=== PATIENT | female | born 1990 | race Caucasian/White ===

== ENCOUNTER 2017-04-15 12:05 | Observation (INO) ==
[2017-04-15 10:01] LABS: Bilirubin,Urine Negative (Negative); Blood,Urine Negative (Negative); Clarity,Urine Clear (Clear); Color,Urine Yellow (Yellow); Glucose,Urine (UA) Normal (Normal); Ketones,Urine Negative (Negative); Leukocyte Esterase,Urine Negative (Negative); Nitrite,Urine Negative (Negative); PH,Urine 6.5 pH Units (5.0-8.0); Protein,Urine Negative (Neg-Trace); Specific Gravity,Urine 1.007 (1.010-1.025); Urobilinogen,Urine Normal (Normal)
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
[~2017-04-15 12:05] MED LIST: Acetaminophen 325 MG TABLET PO ONE
== END 2017-04-15 14:05 | disposition home or self-care (01) ==
LOC: 1NENULAB
PROVIDERS: ADMIT Obstetrics & Gynecology; ATTEND Obstetrics & Gynecology

== ENCOUNTER 2017-07-12 14:12 | Observation (INO) ==
[2017-07-12 14:48] VITALS: BP 118/66
[2017-07-12] MEDS ORDERED: Ringers Solution, Lactated 1,000 ML IVC ONE (15:06)
[2017-07-12 15:14] LABS: Bilirubin,Urine Small (Negative); Blood,Urine Negative (Negative); Clarity,Urine Cloudy (Clear); Color,Urine Dark Yellow (Yellow); Glucose,Urine (UA) Normal (Normal); Ketones,Urine >=160 mg/dL (Negative); Leukocyte Esterase,Urine Small (Negative); Nitrite,Urine Negative (Negative); PH,Urine 6.5 pH Units (5.0-8.0); Protein,Urine 30 mg/dL (Neg-Trace); Urobilinogen,Urine Normal (Normal)
[2017-07-12 15:15] LABS: Basophils % 0.1 %; Eosinophils # 0.1 K/mcL (0.0-0.6); Hematocrit 38.6 % (35.3-44.9); Hemoglobin 13.2 g/dL (11.5-15.4); Immature Granulocytes % 0.5 % (0-4); Lymphocytes # 1.2 K/mcL (0.6-4.6); Mean Corpuscular HGB Conc 34.2 g/dL (31.6-35.5); Mean Corpuscular Hemoglobin 29.3 pg (28.0-33.3); Mean Corpuscular Volume 85.6 fL (83.0-100.0); Monocytes % 7.3 %; Neutrophils # 10.9 K/mcL (1.6-8.9); Platelet Count 269 K/mcL (140-400); Red Blood Count 4.51 M/mcL (3.82-4.97); Red Cell Distribution Width 14.1 % (11.5-14.5); Segmented Neutrophils % 82.1 %
[2017-07-12] MEDS ORDERED: Ringers Solution, Lactated 1,000 ML IVC SCH (15:15)
[2017-07-12 15:17] LABS: Bacteria,Urine Many per hpf (None-Few); RBC,Urine 0-3 per hpf (0-3); Squamous Epithelial Cell,Urine Many per lpf (None-Few); WBC,Urine 15-30 per hpf (0-3)
[2017-07-12] MEDS ORDERED: *HR* Promethazine 25 MG/ML VIAL IVP ONE (15:42)
--- NOTE | 2017-07-12 15:48 | OB/GYN Progress Note ---
Date of Encounter: 07/12/17 Time of Encounter: 15:43 - Assessment and Plan (1) 38 weeks gestation of Current Visit: Yes Status: Acute Admit for observation (2) Nausea and vomiting during Current Visit: Yes Status: Acute IVF and antiemetic (3) Dehydration Current Visit: Yes Status: Acute IV fluids. Advance diet as tolerated Subjective - Subjective Principal diagnosis: N/V diarrhea Interval history: Pt is a 27 yo at 38.2 weeks with complaint of N/V and diarrhea since last night. States she vomited once early this morning and again after arrival here. Reports 6-7 episodes of diarrhea since last night. Positive movement, denies contractions, LOF, vaginal bleeding. Antepartum ROS: movement normal, no loss of fluid, no vaginal bleeding, no contractions Objective - Vital Signs Vital Signs: Vital Signs Resp BP 07/12/17 14:36 14 118/66 Intake and Output 07/11/17 07/12/17 07/12/17 23:59 07:59 15:59 Other: Weight 101.7 kg Patient Weight 07/12/17 23:59 Weight 101.7 kg - Exam FHR: auscultation normal, category 1 FHR comments: 135 bpm with accels Auscultation: bilateral: wheezes (+ smoker) Abdomen: Present: normal appearance, soft, gravid. Absent: tenderness Uterus: Present: normal Comments: Uterine irritability noted. - Labs Labs: Abnormal lab results WBC 13.3 K/mcL (4.3-11.1) H 07/12/17 14:36 Neutrophils # 10.9 K/mcL (1.6-8.9) H 07/12/17 14:36 Urine Clarity Cloudy (Clear) A 07/12/17 14:36 Ur Specific [place] 1.030 (1.010-1.025) H 07/12/17 14:36 Urine Protein 30 mg/dL (Neg-Trace) H 07/12/17 14:36 Urine Ketones >=160 mg/dL (Negative) H 07/12/17 14:36 Urine Bilirubin Small (Negative) H 07/12/17 14:36 Ur Leukocyte Esterase Small (Negative) H 07/12/17 14:36 Urine Microscopic WBC 15-30 per hpf (0-3) H 07/12/17 14:36 Ur Squamous Epith Cells Many per lpf (None-Few) H 07/12/17 14:36 Urine Bacteria Many per hpf (None-Few) H 07/12/17 14:36 Ur Culture Indicated? YES (NO) A 07/12/17 14:36
[2017-07-12 16:03] LABS: Potassium 3.7 mEq/L (3.5-4.5)
--- NOTE | 2017-07-12 17:34 | Discharge Summary ---
Date of Encounter: 07/12/17 Time of Encounter: 17:34 - Discharge Diagnosis (1) 38 weeks gestation of Priority: Primary Status: Acute (2) Nausea and vomiting during Priority: Secondary Status: Acute Comments: Will discharge home with RX for promethazine 12.5mg (3) Dehydration Priority: Secondary Status: Acute - Discharge Medications Prescriptions: Promethazine [Phenergan] 12.5 mg PO Q6HR #10 tablet Home Medications: Vit/Iron Fumarate/FA [ Tablet] 1 each PO DAILY #30 tablet 11/22 [Rx] Promethazine [Phenergan] 12.5 mg PO Q6HR #10 tablet 07/12/17 [Rx] raNITIdine HCl 1 / PO BID 07/12/17 [History] Allergies/Adverse Reactions: 3 Allergy/AdvReac Type Severity Reaction Status Date / Time No Known Allergies Allergy Verified 11/22/16 17:29 Data Procedures and tests throughout hospitalization: Laboratory Tests 07/12/17 07/12/17 07/12/17 14:36 14:36 14:36 WBC 13.3 H RBC 4.51 Hgb 13.2 Hct 38.6 MCV 85.6 MCH 29.3 MCHC 34.2 RDW 14.1 Plt Count 269 MPV 11.0 Immature Gran % 0.5 Seg Neutrophils % 82.1 Lymphocytes % 9.0 Monocytes % 7.3 Eosinophils % 1.0 Basophils % 0.1 Neutrophils # 10.9 H Lymphocytes # 1.2 Monocytes # 1.0 Eosinophils # 0.1 Basophils # 0.0 Sodium 135 L Potassium 3.7 Chloride 106 Carbon Dioxide 20 Urine Color Dark Yellow Urine Clarity Cloudy A Urine pH 6.5 Ur Specific [place] 1.030 H Urine Protein 30 H Urine Glucose (UA) Normal Urine Ketones >=160 H Urine Blood Negative Urine Nitrite Negative Urine Bilirubin Small H Urine Urobilinogen Normal Ur Leukocyte Esterase Small H Urine Microscopic RBC 0-3 Urine Microscopic WBC 15-30 H Ur Squamous Epith Cells Many H Urine Bacteria Many H Hyaline Casts Test Not Performed Urine Yeast Test Not Performed Ur Culture Indicated? YES A Labs on day of discharge: Labs from last 24 hours 07/12/17 07/12/17 07/12/17 14:36 14:36 14:36 WBC 13.3 H RBC 4.51 Hgb 13.2 Hct 38.6 MCV 85.6 MCH 29.3 MCHC 34.2 RDW 14.1 Plt Count 269 MPV 11.0 Immature Gran % 0.5 Seg Neutrophils % 82.1 Lymphocytes % 9.0 Monocytes % 7.3 Eosinophils % 1.0 Basophils % 0.1 Neutrophils # 10.9 H Lymphocytes # 1.2 Monocytes # 1.0 Eosinophils # 0.1 Basophils # 0.0 Sodium 135 L Potassium 3.7 Chloride 106 Carbon Dioxide 20 Urine Color Dark Yellow Urine Clarity Cloudy A Urine pH 6.5 Ur Specific [place] 1.030 H Urine Protein 30 H Urine Glucose (UA) Normal Urine Ketones >=160 H Urine Blood Negative Urine Nitrite Negative Urine Bilirubin Small H Urine Urobilinogen Normal Ur Leukocyte Esterase Small H Urine Microscopic RBC 0-3 Urine Microscopic WBC 15-30 H Ur Squamous Epith Cells Many H Urine Bacteria Many H Hyaline Casts Test Not Performed Urine Yeast Test Not Performed Ur Culture Indicated? YES A Date of admission: 07/12/17 14:12 Primary care physician: PCP NONE Discharging clinician: Cande Joseph Anticipated date of discharge: 07/12/17 - Patient Status Disposition: Home, Self-Care Condition: Good Functional capacity at discharge: independent ambulation - Discharge Instructions Follow Up With: NONE,PCP [Primary Care Provider] - - Diet and Activity Activity: increase activity as tolerated Diet: regular diet Hospital Course DESKTOP PUBLISHING SPECIALIST Time Attestation: Total time spent providing and/or coordinating discharge services: Time Spent: Less than 30 minutes Exam - Constitutional Vitals: Resp BP 14 118/66 07/12/17 14:36 07/12/17 14:36 General appearance IM: A&O X 3, pleasant, answers questions appropriately - Other Additional findings: FHR 135 bpm moderate variability +15x15 accels no decels noted. No contractions. - VTE Reasons for not Prescribing Prophylaxis: Treatment not Indicated - Low risk for VTE
== END 2017-07-12 18:05 | disposition home or self-care (01) ==
LOC: 1NENULAB
PROVIDERS: ADMIT Obstetrics & Gynecology; ATTEND Obstetrics & Gynecology

== ENCOUNTER 2017-07-17 08:00 | Inpatient (IN) ==
[2017-07-17] MEDS ORDERED: Naloxone 0.4 MG/ML INJ IVP PRN (08:59)
[2017-07-17] MEDS ORDERED: Ondansetron 4 MG/2 ML VIAL IVP PRN (08:59)
[2017-07-17] MEDS ORDERED: Famotidine 20 MG/2 ML VIAL IVP PRN (08:59)
[2017-07-17] MEDS ORDERED: Ringers Solution, Lactated 1,000 ML IVC SCH (09:00)
--- NOTE | 2017-07-17 09:05 | OB/GYN History & Physical ---
Date of Encounter: 07/17/17 Time of Encounter: 09:00 Assessment and Plan (1) and not yet delivered in third trimester Current visit: Yes Status: Acute (2) 39 weeks gestation of Current visit: Yes Status: Acute (3) Elective induction of labor planned Current visit: Yes Status: Acute History of Present Illness HPI: Ms. Garrido is a 27 year old female 3 para 2 at 39-0/7 weeks by a 9-1/7 week ultrasound who presented for an induction of labor secondary to term with favorable cervix. Patient had previously been scheduled for primary section because of transverse lie the patient recently flipped to vertex confirmed by ultrasound and we changed her delivery to vaginal. The patient's initial course has been complicated with severe depression has met with counseling was placed on medication but she has not taken anything at this time. Did advise watch very closely in the period and initiate treatment at that time if need be. Patient is having occasional contractions not really feeling them good movement no vaginal bleeding. Patient is Rh + rubella positive GBS negative Past Med Surg Social Fam HX - Past Medical History Source: patient, old records reviewed Medical history: no medical history, GERD, other Psychiatric history: anxiety, depression - Past Surgical History Surgical History: cholecystectomy, other (Tonsils and adenoids) - Social History Smoking Status: Current every day smoker Smokeless Tobacco Status: No Alcohol use: none Drug use: none Occupational status: unemployed Current living situation: Home - Independent Activity Level: Independent ambulation Recent Out of Country Travel Within the Last 8 Weeks: No Exposure or Possible Exposure to Illness During Travel: No - Family History Mother Living Status: Still Living Hx Family Cardiac Disorders: No Hx Family Respiratory Disorders: No Hx Family Cancer: Yes (cervical; kidney; brain) Hx Family GI Disorders: No Hx Family Endocrine Disorder: No Hx Family Neuromuscular Disorders: No Hx Family Neurologic Disorders: No Hx Family HEENT Disorders: No Hx Family Autoimmune Disorders: No - Additional Family History Additional family history: Family history is noncontributory Obstetrical History - Pregnancies : 3 Para: 2 Term: 2 Livin Medications and Allergies Vit/Iron Fumarate/FA [ Tablet] 1 each PO DAILY #30 tablet 11/22 [Rx] Promethazine [Phenergan] 12.5 mg PO Q6HR #10 tablet 07/12/17 [Rx] raNITIdine HCl 1 / PO BID 07/12/17 [History] 3 Allergy/AdvReac Type Severity Reaction Status Date / Time No Known Allergies Allergy Verified 11/22/16 17:29 Review of System OB All systems PM: reviewed and no additional remarkable complaints except as stated Exam - Constitutional Constitutional: well developed, well nourished, no acute distress, obese - HEENT HEENT: EOMI, PERRL - Neck Neck exam: full ROM - Lungs Respiratory exam: CTAB - Cardiovascular Cardiovascular exam: RRR - Abdomen Abdomen: Present: bowel sounds normal, gravid - Cervix Dilation: 2 Effacement: 80 Station: -2 (mcdonough catheter placed, during placement we had artificial rupture membranes clear fluid noted we will use by mouth Cytotec to get the contractions got) Results All other labs normal. - VTE Reasons for not Prescribing Prophylaxis: Treatment not Indicated - Low risk for VTE
[2017-07-17 09:11] LABS: Basophils % 0.2 %; Eosinophils # 0.3 K/mcL (0.0-0.6); Eosinophils % 2.1 %; Hematocrit 34.9 % (35.3-44.9); Hemoglobin 11.7 g/dL (11.5-15.4); Immature Granulocytes % 0.8 % (0-4); Lymphocytes # 2.2 K/mcL (0.6-4.6); Lymphocytes % 16.8 %; Mean Corpuscular HGB Conc 33.5 g/dL (31.6-35.5); Mean Corpuscular Hemoglobin 29.2 pg (28.0-33.3); Monocytes # 1.1 K/mcL (0.0-1.3); Monocytes % 8.2 %; Neutrophils # 9.3 K/mcL (1.6-8.9); Platelet Count 237 K/mcL (140-400); Red Blood Count 4.01 M/mcL (3.82-4.97); Red Cell Distribution Width 14.2 % (11.5-14.5); Segmented Neutrophils % 71.9 %
[2017-07-17] MEDS ORDERED: miSOPROStol 25 MCG TABLET VG PRN (09:12)
[2017-07-17] MEDS ORDERED: miSOPROStol 100 MCG TABLET PO ONE (09:39)
[2017-07-17] MEDS ORDERED: *HR* Nalbuphine 20 MG/ML AMPUL ONE (11:05)
[2017-07-17] MEDS ORDERED: *HR* Nalbuphine 20 MG/ML AMPUL IVP PRN (11:06)
[2017-07-17] MEDS ORDERED: Epidural Premix (fent/bupiv) 110 ML EP SCH (13:45)
[2017-07-17] MEDS ORDERED: Epidural Premix (fent/bupiv) 110 ML EP ONE (13:48)
[2017-07-17] MEDS ORDERED: *HR* FentaNYL (PF) 100 MCG/2 ML VIAL ONE (14:44)
--- NOTE | 2017-07-17 15:03 | Anesthesia Evaluation PreOp ---
Date of Encounter: 07/17/17 Time of Encounter: 15:00 - Past History Planned Operation: YADIRA Cardiac History: Denies any Significant Hx Pulmonary History: Denies Any Significant HX CIVIL ENGINEERING DRAFTSPERSON History: Denies Any Significant HX Other Medical History: Denies Any Significant HX Anesthesia History: No Prior Anesthetic Complications : Yes Test: Positive Alcohol Use: none Drug use: none Medications and Allergies Vit/Iron Fumarate/FA [ Tablet] 1 each PO DAILY #30 tablet 11/22 [Rx] Promethazine [Phenergan] 12.5 mg PO Q6HR #10 tablet 07/12/17 [Rx] raNITIdine HCl 1 / PO BID 07/12/17 [History] 3 Allergy/AdvReac Type Severity Reaction Status Date / Time No Known Allergies Allergy Verified 11/22/16 17:29 - Meds/Allergy Pre-op Review Medications Reviewed: Yes Allergies Reviewed: No Beta Blockers on Current Med List: No Anesthesia Results - Labs 07/17/17 09:00 Anesthesia Exam Height: 67 Pain Scale: 10 - HEENT Pupil (Motor): Pupils equal Mallampati: II Teeth: Normal Oral Opening: Greater than 3 - CIVIL ENGINEERING DRAFTSPERSON LOC: Oriented CIVIL ENGINEERING DRAFTSPERSON Motor: Normal RUE, Normal LUE, Normal RLE, Normal LLE, Normal Face CIVIL ENGINEERING DRAFTSPERSON Sensory: Normal: RUE, LUE, RLE, LLE, Face - Cardiac Rhythm: Regular Murmur: None JVD: No Carotid Bruit: No - Pulmonary Breath Sounds: bilateral Clear Respiratory Effort: Symmetrical Anesthesia Assess/Plan ASA Score: 2 Modified [place] Scale for Level of Consciousness: Cooperative, oriented, and tranquil Anesthetic Plan: Regional Autologous Blood: No Monitoring Plan: Standard Monitors
--- NOTE | 2017-07-17 15:06 | Anesthesia Procedures ---
Date of Encounter: 07/17/17 Time of Encounter: 15:00 Procedures: Anesthesia - Epidural/Spinal Patient ID/Chart reviewed: Yes Patient examined: Yes OB Eval: Gestational age: 30 OB Eval: : 3 OB Eval: Hx Para: 2 OB Eval: Dilated at (cm): 6 OB Eval: Contractions: Non-stressed pattern Consent Obtained: Yes Supplemental Oxygen: None/Room Air Site Prep: Aseptic Technique, Sterile prep and drape, Povidone-Iodine 1% Patient position: upright Local Anesthetic: Lidocaine 1% Amount of Local Anesthetic used: 3 Touhy Needle Gauge: 18 Touhy Needle Depth (cm): 5 Catheter Depth at Skin (cm): 7 Test Dose (1.5% Lido + Epi): Volume given (mls): 3 Test Dose Result: Negative Loading Dose: 0.25% Marcaine (mls): 10 Infusion Rate (mls/hr): [address]: Tegaderm, Tape Interspace Used: L4-L5 Loss of Resistance (RACHEL): Yes Blood: No CSF: No Paresthesia: No Vitals + FHT's: no complications with epidural placement, pt denies relief, states pain level is at 10. consulted dr flowers, catheter pulled. L5 S1 intrathecal with fentanyl 10mcg and 0.5ml PFsaline with success, positive CSF, denies relief.
[2017-07-17] MEDS ORDERED: Oxytocin 20 units/ LR 1000 mL 20 UNIT/1,000 ML BAG IVC ONE (15:38)
[2017-07-17] MEDS ORDERED: Lidocaine 1% 20 ML MDV ONE (15:45)
--- NOTE | 2017-07-17 16:19 | OB/GYN Procedure Note ---
Delivery - Delivery Date: 07/17/17 Provider: Josias Atkins Intrapartum events: none Delivery induction: AROM, mcdonough, misoprostol Delivery augmentation: pitocin Delivery monitor: external FHT, external uterine Anesthesia: local Estimated Blood Loss: 200 - (s) A Infant Delivery Date: 07/17/17 Delivery Time: 15:36 Presentation: vertex Position: AGGIE Route of delivery: Gender: Female Viability: Viable Pounds: 7 Ounces: 14 Weight Gram: 3.585 kg at 1 minute: 8 at 5 mins: 9 Shoulder Dystocia: not encountered Specimens collected: cord blood Placenta: spontaneous Cord: 3 umbilical vessels - Repair Episiotomy: none Laceration Description: Periurethral (Right) - Complications Delivery complications: none Delivery comments: Patient is a 27-year-old 3 para 2 at 39-0/7 weeks who presented to labor and delivery for induction of labor. Patient was scheduled for Mcdonough catheter with side effects during insertion of the Mcdonough she had spontaneous rupture membranes. We switched her to by mouth Cytotec 50 g 1 then augmented with Pitocin. Patient was getting uncomfortable had requested an epidural anesthesia attempted but due to her history of scoliosis they were unable to get the epidural to take. Patient progressed rapidly became complete she had a small anterior lip which was reducible she pushed twice delivering a viable female infant in left occiput anterior presentation at 1536. There was no nuchal cord, no meconium, infant was bulb suctioned on the abdomen. Apgars were 8 at 1 minutes, 9 at 5 minutes, weight was 7 lbs. 14 oz. Placenta was then delivered spontaneously with a three-vessel cord, bull ladle tender at [place], anesthesia local, estimated blood loss 200 mL. She had a small right periurethral laceration repaired with 3-0 Vicryl in usual fashion cervix and vagina was visualized intact. She will be observed 2 hours before being taken to the floor - Disposition Mom disposition: stable in LDR [place] disposition: stable in LDR
[2017-07-17] MEDS ORDERED: Oxytocin 20 units/ LR 1000 mL 20 UNIT/1,000 ML BAG IVC SCH (18:11)
[2017-07-17] MEDS ORDERED: Acetaminophen 325 MG TABLET PO PRN (18:11)
[2017-07-17] MEDS ORDERED: Measles/Mumps/Rubella Vacc 0.5 ML VIAL SQ PRN (18:11)
[2017-07-17] MEDS: Ibuprofen 600 MG TABLET PO PRN (19:12)
[2017-07-18] MEDS: Ibuprofen 600 MG TABLET PO PRN ×2 (03:48→13:21)
[2017-07-18 06:08] LABS: Basophils % 0.2 %; Eosinophils # 0.3 K/mcL (0.0-0.6); Eosinophils % 2.1 %; Hematocrit 28.9 % (35.3-44.9); Immature Granulocytes % 0.7 % (0-4); Lymphocytes # 2.7 K/mcL (0.6-4.6); Lymphocytes % 21.5 %; Mean Corpuscular HGB Conc 34.6 g/dL (31.6-35.5); Mean Corpuscular Volume 86.8 fL (83.0-100.0); Mean Platelet Volume 10.6 fL (9.4-12.4); Monocytes # 0.9 K/mcL (0.0-1.3); Monocytes % 7.3 %; Neutrophils # 8.6 K/mcL (1.6-8.9); Platelet Count 203 K/mcL (140-400); Red Blood Count 3.33 M/mcL (3.82-4.97); Red Cell Distribution Width 14.3 % (11.5-14.5); Segmented Neutrophils % 68.2 %
[2017-07-18 08:29] VITALS: BP 93/55
[2017-07-18] MEDS ORDERED: Prenatal Vit/FA 1 EACH TABLET PO SCH ×2 (09:00)
--- NOTE | 2017-07-18 09:56 | Discharge Summary ---
Date of Encounter: 07/18/17 Time of Encounter: 09:53 - Discharge Diagnosis (1) Vaginal delivery Priority: Primary Status: Acute Comments: Pt meeting all milestones, feels well. Bottlefeeding. Pain well managed on po pain medication. desires discharge. - Discharge Medications Prescriptions: Ibuprofen [Motrin] 600 mg PO Q6HR PRN #60 tab PRN Reason: Cramping Docusate [Colace] 100 mg PO BID #60 Ferrous Sulfate 325 mg PO DAILY #60 tab Home Medications: raNITIdine HCl 1 / PO BID 07/12/17 [History] Acetaminophen [Tylenol] 650 mg PO Q6HR PRN tab 07/18/17 [Rx] Docusate [Colace] 100 mg PO BID #60 07/18/17 [Rx] Ferrous Sulfate 325 mg PO DAILY #60 tab 07/18/17 [Rx] Ibuprofen [Motrin] 600 mg PO Q6HR PRN #60 tab 07/18/17 [Rx] Allergies/Adverse Reactions: 3 Allergy/AdvReac Type Severity Reaction Status Date / Time No Known Allergies Allergy Verified 11/22/16 17:29 Data Procedures and tests throughout hospitalization: Laboratory Tests 07/17/17 07/18/17 09:00 05:58 WBC 12.9 H 12.7 H RBC 4.01 3.33 L Hgb 11.7 D 10.0 L D Hct 34.9 L 28.9 L MCV 87.0 86.8 MCH 29.2 30.0 MCHC 33.5 34.6 RDW 14.2 14.3 Plt Count 237 203 MPV 11.0 10.6 Immature Gran % 0.8 0.7 Seg Neutrophils % 71.9 68.2 Lymphocytes % 16.8 21.5 Monocytes % 8.2 7.3 Eosinophils % 2.1 2.1 Basophils % 0.2 0.2 Neutrophils # 9.3 H 8.6 Lymphocytes # 2.2 2.7 Monocytes # 1.1 0.9 Eosinophils # 0.3 0.3 Basophils # 0.0 0.0 Labs on day of discharge: Labs from last 24 hours 07/18/17 05:58 WBC 12.7 H RBC 3.33 L Hgb 10.0 L D Hct 28.9 L MCV 86.8 MCH 30.0 MCHC 34.6 RDW 14.3 Plt Count 203 MPV 10.6 Immature Gran % 0.7 Seg Neutrophils % 68.2 Lymphocytes % 21.5 Monocytes % 7.3 Eosinophils % 2.1 Basophils % 0.2 Neutrophils # 8.6 Lymphocytes # 2.7 Monocytes # 0.9 Eosinophils # 0.3 Basophils # 0.0 Date of admission: 07/17/17 08:43 Primary care physician: Willie Murray Consults: 07/17/17 18:11 Consult to Dry Cell Battery Assembler [CONS] Routine Comment: Vaginal delivery, consult needed Consult to Metallographic Technician [CONS] Routine Reason for SW Consult: hx depression wanting to talk to Jennifer Discharging clinician: Mary Smith Anticipated date of discharge: 07/18/17 - Patient Status Disposition: Home, Self-Care Condition: Good Functional capacity at discharge: independent ambulation Overall status at discharge: patient is back to baseline - Discharge Instructions Follow Up With: Willie Murray MD [Primary Care Provider] - Josias Atkins DO [Partnered Physician] - - Diet and Activity Activity: resume usual activities as tolerated Diet: regular diet Hospital Course Reason for admission: induction of labor, IUP at term Delivery: Episiotomy: none Laceration: other (periuretheral ) Other procedures: none complications: none Discharge diagnosis: IUP at term delivered baby: female Hospital course: Delivery - Delivery Date: 07/17/17 Provider: Josias Atkins Intrapartum events: none Delivery induction: AROM, mcdonough, misoprostol Delivery augmentation: pitocin Delivery monitor: external FHT, external uterine Anesthesia: local Estimated Blood Loss: 200 - Infant (s) A Delivery Date: 07/17/17 Infant Delivery Time: 15:36 Presentation: vertex Position: AGGIE Route of delivery: Gender: Female Viability: Viable Pounds: 7 Ounces: 14 Weight Gram: 3.585 kg at 1 minute: 8 at 5 mins: 9 Shoulder Dystocia: not encountered Specimens collected: cord blood Placenta: spontaneous Cord: 3 umbilical vessels - Repair Episiotomy: none Laceration Description: Periurethral (Right) - Complications Delivery complications: none Delivery comments: Patient is a 27-year-old 3 para 2 at 39-0/7 weeks who presented to labor and delivery for induction of labor. Patient was scheduled for Mcdonough catheter with side effects during insertion of the Mcdonough she had spontaneous rupture membranes. We switched her to by mouth Cytotec 50 g 1 then augmented with Pitocin. Patient was getting uncomfortable had requested an epidural anesthesia attempted but due to her history of scoliosis they were unable to get the epidural to take. Patient progressed rapidly became complete she had a small anterior lip which was reducible she pushed twice delivering a viable female in left occiput anterior presentation at 1536. There was no nuchal cord, no meconium, was bulb suctioned on the abdomen. Apgars were 8 at 1 minutes, 9 at 5 minutes, infant weight was 7 lbs. 14 oz. Placenta was then delivered spontaneously with a three-vessel cord, web analyst at [place], anesthesia local, estimated blood loss 200 mL. She had a small right periurethral laceration repaired with 3-0 Vicryl in usual fashion cervix and vagina was visualized intact. She will be observed 2 hours before being taken to the floor - Disposition Mom disposition: stable in PP and appropriate for discharge. Time Attestation: Total time spent providing and/or coordinating discharge services: Time Spent: Less than 30 minutes Exam - Constitutional Vitals: Temp Pulse Resp BP Pulse Ox 98.4 F 81 16 93/55 97 07/18/17 07:30 07/18/17 07:30 07/18/17 07:30 07/18/17 07:30 07/18/17 03:30 General appearance IM: A&O X 3 - Respiratory Respiratory exam: Present: CTAB - Cardiovascular Cardiovascular exam IM: Present: RRR - GI/Abdominal GI/Abdominal exam IM: normal bowel sounds, soft - Uterine Tone: Firm Uterus Position: At Umbilicus, 1 Finger Below Umbilicus - Extremities Exam Extremities exam IM: Present: normal capillary refill, normal inspection - Neurological Exam Neurological exam: normal gait, oriented X3 - Psychiatric Additional comments: reports good mood.
== END 2017-07-18 18:00 | disposition home or self-care (01) | DRG 560 ==
LOC: 1NENULAB 08:43 → 1NENUOBS 18:01
PROVIDERS: ADMIT Obstetrics & Gynecology; ATTEND Obstetrics & Gynecology